=== PATIENT | female | born 1970 | race Caucasian/White ===

== ENCOUNTER 2020-02-27 07:17 | Inpatient (IN) | payer BC ==
[~2020-02-27] VITALS: Ht 162.6 cm; Wt 83.2 kg
[2020-02-27] MEDS ORDERED: morphine 4 MG/ML inj SYRINge IV ONE (07:55)
[2020-02-27 08:24] LABS: BASOPHILS # (AUTO) 0.1 X10'3 (0-0.2); BASOPHILS % (AUTO) 0.6 % (0-1); EOSINOPHILS # (AUTO) 0.1 X10'3 (0-0.9); EOSINOPHILS % (AUTO) 0.4 % (0-6); HEMATOCRIT 39.7 % (35.0-45.0); HEMOGLOBIN 13.3 g/dl (12.0-16.0); LYMPHOCYTES # (AUTO) 2.3 X10'3 (1.1-4.8); LYMPHOCYTES % (AUTO) 13.2 % (21-51); MEAN CORPUSCULAR HEMOGLOBIN 28.3 PG (27.0-31.0); MEAN CORPUSCULAR HGB CONC 33.6 g/dL (33.0-36.5); MEAN CORPUSCULAR VOLUME 84.5 FL (78-98); MEAN PLATELET VOLUME 8.2 FL (7.4-10.4); MONOCYTES # (AUTO) 1.3 X10'3 (0-0.9); MONOCYTES % (AUTO) 7.6 % (2-12); NEUTROPHILS # (AUTO) 13.5 X10'3 (1.8-7.7); NEUTROPHILS % (AUTO) 78.2 % (42-75); PLATELET COUNT 316 X10'3 (140-440); RED CELL DISTRIBUTION WIDTH 14.2 % (11.5-14.5); WHITE BLOOD COUNT 17.3 X10'3 (4.5-11.0)
[2020-02-27 08:33] LABS: ALANINE AMINOTRANSFERASE 16 U/L (12-78); ALBUMIN 3.8 G/DL (3.4-5.0); ALBUMIN/GLOBULIN RATIO 0.9 (1.1-1.5); ALKALINE PHOSPHATASE 74 IU/L (46-116); ANION GAP 15 (8-16); ASPARTATE AMINO TRANSFERASE 9 U/L (10-37); BILIRUBIN,TOTAL 1.6 MG/DL (0.1-1.0); BLOOD UREA NITROGEN 12 MG/DL (7-18); CALCIUM 9.1 MG/DL (8.5-10.1); CHLORIDE 103 MMOL/L (99-107); CREATININE 0.63 MG/DL (0.40-0.90); GLUCOSE 135 MG/DL (70-104); LIPASE 85 U/L (73-393); POTASSIUM 3.3 MMOL/L (3.5-5.1); SODIUM 141 MMOL/L (135-145); TOTAL PROTEIN 8.2 G/DL (6.4-8.2); eGFR > 90 ML/MIN
[2020-02-27 08:45] LABS: URINE HCG NEGATIVE (NEG)
[2020-02-27] MEDS ORDERED: iohexol 300mg/ml 100ml inj. ONE (08:50)
--- NOTE | 2020-02-27 09:50 | NUR ---
US tech at bedside at this time.
[2020-02-27] MEDS ORDERED: ringers solution, lacted 1,000 ML IV ONE ×2 (10:05→16:55)
[2020-02-27] MEDS ORDERED: potassium Cl 20 mEq SR tablet PO PRN (10:20)
[2020-02-27] MEDS ORDERED: ondansetron/PF 4mg/2ml inj IV PRN (10:20)
[2020-02-27] MEDS ORDERED: mag hydrox/Alum hydrox/simeth 30ml oral suspension PO PRN (10:20)
[2020-02-27] MEDS ORDERED: magnesium 2GM in 50ml NS 50 ML IV PRN (10:20)
[2020-02-27] MEDS ORDERED: magnesium hydroxide 30ml (MOM) UD suspension PO PRN (10:20)
[2020-02-27] MEDS ORDERED: magnesium 4gm in 100ml NS 100 ML IV PRN (10:20)
[2020-02-27] MEDS ORDERED: potassium CL 10mEq/100ml bag 100 ML IV PRN (10:20)
[2020-02-27] MEDS ORDERED: acetaminophen 325mg tablet PO PRN (10:20)
[2020-02-27] MEDS ORDERED: magnesium Cl slow-release 64mg tablet PO PRN (10:20)
[2020-02-27] MEDS ORDERED: OXYB1PAT TOP (10:34)
[2020-02-27] MEDS ORDERED: TRAZ-251 PO (10:34)
[2020-02-27] MEDS: normal saline 1000ml 1,000 ML IV SCH ×2 (11:48→21:43)
[2020-02-27] MEDS: HYDROmorphone inj. 0.5 MG/0.5 ML DISP.SYRIN IV PRN ×3 (11:50→20:08)
--- NOTE | 2020-02-27 14:30 | NUR ---
PT IS RESTING AND PAIN IS UNDER CONTROL
[2020-02-27] MEDS: potassium CL 10mEq/100ml bag 100 ML IV PRN ×3 (15:55→21:44)
[2020-02-27] MEDS ORDERED: piperacillin/tazo 3.375gm/50ml 50 ML IV SCH (16:00)
[2020-02-27] MEDS: piperacillin/tazo 4.5gm/100ml 100 ML IV SCH (17:39)
--- NOTE | 2020-02-27 18:00 | NUR ---
Patient in room [facility]. I have received report from Kristin PETERSEN and had the opportunity to ask questions and assume patient care.
[2020-02-27] MEDS ORDERED: traZODone 50mg tablet PO PRN (18:25)
[2020-02-27] MEDS ORDERED: OXYBUTYNIN TP SCH (18:30)
[2020-02-27] MEDS: K and/or MAG REPLACEMENT MC SCH (20:00)
--- NOTE | 2020-02-27 22:30 | NUR ---
Patient c/o pain through the IV site from Potassium. Slowed Potassium Chloride to 60ml/hr, however patient continue to c/o of pain. Refused further potassium replacement. Stop administration as per patient's request.
[2020-02-28] VITALS (18 sets, daily range): BP systolic 115–163; BP diastolic 68–94
[2020-02-28] MEDS: HYDROmorphone inj. 0.5 MG/0.5 ML DISP.SYRIN IV PRN ×5 (00:01→22:14)
[2020-02-28] MEDS: piperacillin/tazo 4.5gm/100ml 100 ML IV SCH ×3 (00:05→18:19)
[2020-02-28 06:00] LABS: BASOPHILS % (AUTO) 0.3 % (0-1); EOSINOPHILS # (AUTO) 0.1 X10'3 (0-0.9); EOSINOPHILS % (AUTO) 0.9 % (0-6); HEMATOCRIT 35.3 % (35.0-45.0); LYMPHOCYTES # (AUTO) 1.5 X10'3 (1.1-4.8); MEAN CORPUSCULAR HEMOGLOBIN 28.7 PG (27.0-31.0); MEAN CORPUSCULAR HGB CONC 33.9 g/dL (33.0-36.5); MEAN CORPUSCULAR VOLUME 84.8 FL (78-98); MONOCYTES # (AUTO) 0.9 X10'3 (0-0.9); MONOCYTES % (AUTO) 6.9 % (2-12); NEUTROPHILS # (AUTO) 10.8 X10'3 (1.8-7.7); NEUTROPHILS % (AUTO) 80.9 % (42-75); PLATELET COUNT 274 X10'3 (140-440); RED BLOOD COUNT 4.17 X10'6 (4.20-5.60); WHITE BLOOD COUNT 13.4 X10'3 (4.5-11.0)
[2020-02-28] MEDS ORDERED: famotidine/PF 10 mg/ml inj IV ONE ×2 (06:00)
[2020-02-28 06:06] LABS: ALANINE AMINOTRANSFERASE 17 U/L (12-78); ALBUMIN 3.1 G/DL (3.4-5.0); ALBUMIN/GLOBULIN RATIO 0.7 (1.1-1.5); ALKALINE PHOSPHATASE 65 IU/L (46-116); ANION GAP 9 (8-16); ASPARTATE AMINO TRANSFERASE 8 U/L (10-37); BILIRUBIN,TOTAL 1.3 MG/DL (0.1-1.0); BLOOD UREA NITROGEN 9 MG/DL (7-18); BUN/CREATININE RATIO 14.8 (6.6-38.0); CALCIUM 8.5 MG/DL (8.5-10.1); CHLORIDE 106 MMOL/L (99-107); CREATININE 0.61 MG/DL (0.40-0.90); GLUCOSE 109 MG/DL (70-104); MAGNESIUM 1.9 MG/DL (1.5-2.4); POTASSIUM 3.1 MMOL/L (3.5-5.1); SODIUM 141 MMOL/L (135-145); TOTAL CARBON DIOXIDE 25.6 MMOL/L (24-32); TOTAL PROTEIN 7.4 G/DL (6.4-8.2); eGFR > 90 ML/MIN
[2020-02-28] MEDS: normal saline 1000ml 1,000 ML IV SCH ×2 (06:20→18:20)
--- NOTE | 2020-02-28 06:26 | NUR ---
Problems reprioritized. Patient report given, questions answered & plan of care reviewed with Chelsy PETERSEN.
--- NOTE | 2020-02-28 06:27 | NUR ---
Patient in room [facility]. I have received report from TRINITY Montoya and had the opportunity to ask questions and assume patient care.
[2020-02-28] MEDS: K and/or MAG REPLACEMENT MC SCH ×2 (08:00→20:00)
[2020-02-28] MEDS: potassium Cl 20 mEq SR tablet PO PRN ×2 (09:10→21:42)
[2020-02-28] MEDS ORDERED: INDOCYANINE GREEN 25 MG/10 ML VIAL IV ONE (12:20)
[2020-02-28] MEDS ORDERED: hydrALAZINE 20mg/ml inj. IV PRN (13:20)
[2020-02-28] MEDS ORDERED: labetalol 20mg/4ml (5mg/ml) syringe IV PRN (13:20)
[2020-02-28] MEDS ORDERED: ringers solution, lacted 1,000 ML IV SCH (13:20)
[2020-02-28] MEDS ORDERED: ondansetron/PF 4mg/2ml inj IV PRN (13:20)
[2020-02-28] MEDS ORDERED: fentaNYL/PF 50MCG/1 ML 2ML syringe IV PRN ×2 (13:20)
[2020-02-28] MEDS ORDERED: morphine 2 MG/ML inj. syringe IV PRN (13:20)
--- NOTE | 2020-02-28 14:03 | NUR ---
pt transported to OR via hospital bed. Belongings left in room 340B.
[2020-02-28] MEDS ORDERED: LIDOcaine 1% 30ml preserv. free vial ONE (14:20)
[2020-02-28] MEDS ORDERED: BUPIVAcaine/PF 2.5mg/ml (0.25%) 10ml vial ONE (14:21)
[2020-02-28] MEDS ORDERED: fentaNYL/PF 50MCG/1 ML 2ML syringe ONE (14:44)
[2020-02-28] MEDS ORDERED: midazolam 2 mg/2 ml injection ONE (14:45)
[2020-02-28] MEDS ORDERED: LIDOcaine 2% (20mg/ml) 5ml vial ONE (14:51)
[2020-02-28] MEDS ORDERED: ondansetron/PF 4mg/2ml inj ONE (14:51)
[2020-02-28] MEDS ORDERED: rocuronium 10mg/ml inj IV ONE (14:51)
[2020-02-28] MEDS ORDERED: propofol inj 20 ML IV ONE (14:51)
[2020-02-28] MEDS ORDERED: labetalol 20mg/4ml (5mg/ml) syringe IV ONE (15:23)
[2020-02-28] MEDS ORDERED: HYDROcodone/acetaminophen 5mg/325mg tablet PO PRN (16:45)
--- NOTE | 2020-02-28 16:47 | NUR ---
Received from OR via BED, accompanied by Anesthesiologist DR GRANT and report given by Anesthesiologist. PT DROWSY, PAINFUL, STATES HAS PAIN IN SHOULDERS AND ABDOMINAL PAIN, 4 LAP SITES W/ARTIS JOHNSON. Addendum: 02/28/20 at 1702 by Gabriela Finn RN Amended: Links added.
[2020-02-28] MEDS: morphine 4 MG/ML inj SYRINge IV PRN ×2 (17:04→17:47)
--- NOTE | 2020-02-28 17:27 | NUR ---
Patient in room [facility]. I have received report from Gabriela PETERSEN and had the opportunity to ask questions Awaiting patients arrival..
--- NOTE | 2020-02-28 17:57 | NUR ---
Report called to receiving nurse. Transferred via BED, NO Belongings, PAIN IMPROVED AFTER PAIN MEDICATION, BLL, CALL LIGHT GIVEN, SIDE RAILS UP X 2, RECEIVING RN AT BEDSIDE TO RECEIVE PT. Special Issues communicated to receiving nurse. YES. Addendum: 02/28/20 at 1810 by Gabriela Finn RN Amended: Links added.
--- NOTE | 2020-02-28 18:00 | NUR ---
Patient in room [facility]. I have received report from Chelsy PETERSEN and had the opportunity to ask questions and assume patient care.
--- NOTE | 2020-02-28 18:08 | NUR ---
Pt returned to surgical floor via hospital bed. Post op vitals started.
--- NOTE | 2020-02-28 18:22 | NUR ---
Problems reprioritized. Patient report given, questions answered & plan of care reviewed with Manuela PETERSEN, and puma Montoya RN.
[2020-02-29 00:30] VITALS: BP 133/53
[2020-02-29] MEDS: piperacillin/tazo 4.5gm/100ml 100 ML IV SCH ×2 (00:40→08:52)
[2020-02-29] MEDS: HYDROmorphone inj. 0.5 MG/0.5 ML DISP.SYRIN IV PRN (01:20)
[2020-02-29] MEDS: potassium Cl 20 mEq SR tablet PO PRN (01:50)
[2020-02-29] MEDS: normal saline 1000ml 1,000 ML IV SCH (02:20)
[2020-02-29] MEDS: HYDROcodone/acetaminophen 10/325mg tab PO PRN ×3 (04:46→13:25)
[2020-02-29 05:22] LABS: BASOPHILS % (AUTO) 0.1 % (0-1); EOSINOPHILS % (AUTO) 0 % (0-6); HEMATOCRIT 34.4 % (35.0-45.0); HEMOGLOBIN 11.7 g/dl (12.0-16.0); LYMPHOCYTES # (AUTO) 0.7 X10'3 (1.1-4.8); LYMPHOCYTES % (AUTO) 5.2 % (21-51); MEAN CORPUSCULAR HEMOGLOBIN 28.7 PG (27.0-31.0); MEAN CORPUSCULAR HGB CONC 33.9 g/dL (33.0-36.5); MEAN CORPUSCULAR VOLUME 84.7 FL (78-98); MONOCYTES # (AUTO) 0.5 X10'3 (0-0.9); MONOCYTES % (AUTO) 3.7 % (2-12); NEUTROPHILS # (AUTO) 11.9 X10'3 (1.8-7.7); PLATELET COUNT 301 X10'3 (140-440); RED BLOOD COUNT 4.07 X10'6 (4.20-5.60); RED CELL DISTRIBUTION WIDTH 14.2 % (11.5-14.5); WHITE BLOOD COUNT 13.1 X10'3 (4.5-11.0)
[2020-02-29 05:25] LABS: ALANINE AMINOTRANSFERASE 28 U/L (12-78); ALBUMIN 2.8 G/DL (3.4-5.0); ALBUMIN/GLOBULIN RATIO 0.7 (1.1-1.5); ALKALINE PHOSPHATASE 59 IU/L (46-116); ANION GAP 12 (8-16); ASPARTATE AMINO TRANSFERASE 25 U/L (10-37); BILIRUBIN,TOTAL 0.7 MG/DL (0.1-1.0); BLOOD UREA NITROGEN 6 MG/DL (7-18); BUN/CREATININE RATIO 11.8 (6.6-38.0); CALCIUM 8.6 MG/DL (8.5-10.1); CHLORIDE 105 MMOL/L (99-107); CREATININE 0.51 MG/DL (0.40-0.90); GLUCOSE 146 MG/DL (70-104); MAGNESIUM 1.9 MG/DL (1.5-2.4); POTASSIUM 3.8 MMOL/L (3.5-5.1); SODIUM 140 MMOL/L (135-145); TOTAL CARBON DIOXIDE 23.1 MMOL/L (24-32); TOTAL PROTEIN 6.7 G/DL (6.4-8.2); eGFR > 90 ML/MIN
--- NOTE | 2020-02-29 06:38 | NUR ---
Patient in room [facility]. I have received report from TRINITY Gong and had the opportunity to ask questions and assume patient care. Addendum: 02/29/20 at 0639 by Nevin CASTRO Received report from Lindsay
--- NOTE | 2020-02-29 06:38 | NUR ---
Problems reprioritized. Patient report given, questions answered & plan of care reviewed with Orlando PETERSEN.
[2020-02-29 08:00] VITALS: BP 137/74
[2020-02-29] MEDS: K and/or MAG REPLACEMENT MC SCH (08:00)
[2020-02-29 11:00] VITALS: BP 132/73
[2020-02-29] MEDS ORDERED: OXYC-145 PO (13:52)
[2020-02-29 13:53] VITALS: BP 132/73
--- NOTE | 2020-02-29 16:14 | NUR ---
SN Natalie went over discharge papers with patient. The patient was alert and oriented x4 and was asked if she had any questions or concerns. I let her know that she was to make a follow up appointment with her PCP and went over some of the side effects of taking Percocet. Patient was still A&O x4 when I escorted her down to the front lobby.
--- NOTE | 2020-02-29 16:15 | NUR ---
Patient discharged with personal belongings slip and was instructed to stop by front lobby to retrieve. Patient verbalizes understanding.
--- NOTE | 2020-02-29 16:59 | NUR ---
Student documentation: I have reviewed and agree with all interventions, assessments performed and documented by SN Nevin. Student Medication Administration: For this medication-pass time frame, all medication were reviewed, dispensed, administered and documented per hospital policy by SN Nevin.
[2020-02-29] MEDS ORDERED: lactobacillus rhamnosus 10,000 MMU CELLS/CAPSULE PO SCH (20:00)
== END 2020-02-29 16:03 | disposition home or self-care (01) | DRG 419 ==
LOC: ER 07:18 → ED HOLD 10:16 → SUR 3N 11:20
PROVIDERS: ADMIT Family Medicine; ATTEND Family Medicine
PROC: BW211ZZ Computerized Tomography (CT Scan) of Abdomen and Pelvis using Low Osmolar Contrast (ICD-10-PCS; 2020-02-27)
PROC: 8E0W4CZ Robotic Assisted Procedure of Trunk Region, Percutaneous Endoscopic Approach (ICD-10-PCS; 2020-02-28)
PROC: BF131ZZ Fluoroscopy of Gallbladder and Bile Ducts using Low Osmolar Contrast (ICD-10-PCS; 2020-02-28)
PROC: 0FT44ZZ Resection of Gallbladder, Percutaneous Endoscopic Approach (ICD-10-PCS; principal; 2020-02-28 14:39)
DX: K80.00 Calculus of gallbladder with acute cholecystitis without obstruction (principal); Z82.49 Family history of ischemic heart disease and other diseases of the circulatory system; Z87.442 Personal history of urinary calculi; Z87.891 Personal history of nicotine dependence
CPT/HCPCS: 96374; 96375; 99285; Z7506; Z7508; 36415; 74177; 76700; 80053; 81025; 82948; 83690; 83735; 85025; 87081; 93005; A4215; A4618; A7000; G0378; J1170; J2001; J2250; J2270; J2405; J2543; J2704; J3010; J3480; J3490; J7030; J7120; Q9967